=== PATIENT | female | born 1985 | race Caucasian/White ===

== ENCOUNTER 2016-11-02 08:47 | Emergency (ER) | payer OTHER ==
[2016-11-02 09:03] VITALS: BP 128/78; PULSE 75; TEMP 97.9; BMI 39.9
--- NOTE | 2016-11-02 09:34 | PDOC ---
History of Present Illness - General Chief Complaint: Cold Symptoms Stated Complaint: COUGH, POSSIBLE UTI Time Seen by Provider: 11/02/16 09:05 History Source: Patient - History of Present Illness Timing/Duration: reports: other Quality: reports: burning Past History - Past Medical History Allergies/Adverse Reactions: Allergies Allergy/AdvReac Type Severity Reaction Status Date / Time No Known Allergies Allergy Verified 11/02/16 09:03 Home Medications: Ambulatory Orders Nitrofurantoin Monohyd/M-Cryst [Macrobid -] 100 mg PO BID #14 capsule 11/02/16 Other medical history: denies - Psycho/Social/Smoking Cessation Hx Suicidal Ideation: No Smoking History: Never smoked Review of Systems - Review of Systems Constitutional: No: Chills, Fever HEENTM: No: Ear Pain, Throat Pain Respiratory: Yes: Cough. No: Shortness of Breath, Wheezing : Yes: Burning. No: Discharge, Frequency, Flank Pain, Hematuria, Lesions Musculoskeletal: No: Back Pain *Physical Exam - Vital Signs Last Vital Signs Temp Pulse Resp BP Pulse Ox 97.9 F 75 16 128/78 96 11/02/16 08:59 11/02/16 08:59 11/02/16 08:59 11/02/16 08:59 11/02/16 08:59 - Physical Exam General Appearance: Yes: Appropriately Dressed. No: Apparent Distress HEENT: positive: Normal ENT Inspection, Normal Voice. negative: Scleral Icterus (R), Scleral Icterus (L) Neck: positive: Supple. negative: Lymphadenopathy (R), Lymphadenopathy (L) Respiratory/Chest: positive: Lungs Clear, Normal Breath Sounds. negative: Respiratory Distress Cardiovascular: positive: Regular Rate, S1, S2 Female Pelvic Exam: positive: other (scant thick discharge in vault, no lesions) Gastrointestinal/Abdominal: positive: Soft. negative: Tender Integumentary: positive: Dry, Warm Neurologic: positive: Fully Oriented, Alert, Normal Mood/Affect Medical Decision Making - Medical Decision Making 11/02/16 09:31 31-year-old female, denies any past medical history, here with multiple complaints including non-productive cough 3 weeks, not getting better with over -the-counter medication. No hemoptysis, shortness of breath, chest pain, fever or chills. Non-smoker. Denies sick contacts. Patient also complaining of severe external vaginal itching 2 days, no discharge or vaginal lesions. Using vagisil w/ no relief. States she is not sure if she has burning on urination as well. No frequency, flank pain, nausea or vomiting. States her last [employer] exam was a month ago and was tested negative for STDs as per patient. see exam Cough M/l viral No e/o PNA Exam unremarkable -d/c w/ supportive tx ?dysuria R/o uti no e/o pyelo -ua/cx pending Vaginal itching Pelvic exam w/ minimal thick discharge Possible libby Tested neg for STDs recently as per pt, no new sex partners -dose of diflucan in ED 11/02/16 10:00 11/02/16 10:19 3+ LE on ua, will consider tx given ? dysuria. No prior sensitivities on record 11/02/16 10:21 *DC/Admit/Observation/Transfer Diagnosis at time of Disposition: Vaginal itching - Discharge Dispostion Disposition: HOME Condition at time of disposition: Good - Prescriptions Prescriptions: Nitrofurantoin Monohyd/M-Cryst [Macrobid -] 100 mg PO BID #14 capsule - Referrals Referrals: Travis Aguayo MD [Primary Care Provider] - - Patient Instructions Printed Discharge Instructions: DI for Viral Upper Respiratory Infection -- Adult, DI for Vaginal Yeast Infection Additional Instructions: After given Diflucan in ED, your symptoms will gradually go away over the next several days. You can continue to use Vagisil as needed until symptoms improve. Take antibiotics as directed Please report to your [employer] as needed
[2016-11-02] MEDS ORDERED: FLUCONAZOLE 50 MG TABLET PO ONE (09:57)
[2016-11-02] MEDS ORDERED: FLUCONAZOLE 100 MG TABLET (UD) ONE (10:00)
[2016-11-02 10:01] LABS: URINE APPEARANCE CLEAR; URINE BILIRUBIN NEGATIVE (NEGATIVE); URINE COLOR LTYELLOW; URINE GLUCOSE (UA) NEGATIVE (NEGATIVE); URINE KETONE NEGATIVE (NEGATIVE); URINE NITRITE NEGATIVE (NEGATIVE); URINE PROTEIN NEGATIVE (NEGATIVE); URINE UROBILINOGEN NEGATIVE E.U./dl (0.2-1.0)
[2016-11-02 10:10] LABS: URINE BLOOD 1+ (NEGATIVE); URINE LEUK ESTERASE 3+ (NEGATIVE)
[2016-11-02 10:18] LABS: URINE MUCUS RARE; URINE RBC 3 /hpf (0-3); URINE WBC 2 /hpf (3-5)
== END 2016-11-02 10:25 | disposition home or self-care (01) ==
LOC: JERFT 08:47
DX: L29.2 Pruritus vulvae (principal)
CPT/HCPCS: 81003; 81015; 84703; 87086; 99281-25

== ENCOUNTER 2016-11-03 01:17 | Emergency (ER) | payer OTHER ==
[2016-11-03 01:42] VITALS: BP 139/82; PULSE 89; TEMP 97.1; BMI 31.7
--- NOTE | 2016-11-03 02:12 | PDOC ---
History of Present Illness - General Chief Complaint: Vaginal Sxs Stated Complaint: VAGINAL ITCHING Time Seen by Provider: 11/03/16 01:23 - History of Present Illness Initial Comments: 11/03/16 02:41 CHIEF COMPLAINT: vaginal itching HISTORY OF PRESENT ILLNESS: 31 yo F with no PMH returns to ED today for vaginal itching. Patient was treated earlier this morning for both UTI and yeast infection; 1 dose of fluconazole was given in the ED and patient was prescribed Nitrofurantoin. Patient returns because she complains that she still has itching. PAST MEDICAL HISTORY: Denies past medical history FAMILY HISTORY: Denies SOCIAL HISTORY: Denies tobacco, alcohol, illicit drug use. SURGICAL HISTORY: Denies ALLERGIES: No known drug allergies REVIEW OF SYSTEMS General/Constitutional: Denies fever or chills. Denies weakness, weight change. HEENT: Denies change in vision. Denies ear pain or discharge. Denies sore throat. Cardiovascular: Denies chest pain or shortness of breath. Respiratory: Denies cough, wheezing, or hemoptysis. Gastrointestinal: Denies nausea, vomiting, diarrhea or constipation. Denies rectal bleeding. Genitourinary: Vaginal itching. Denies dysuria, frequency, or change in urination. Musculoskeletal: Denies joint or muscle swelling or pain. Denies neck or back pain. Skin and breasts: Denies rash or easy bruising. PHYSICAL EXAM General Appearance: Well-appearing, appropriately dressed. No apparent distress , no intoxication. HEENT: EOMI, PERRLA, normal ENT inspection, normal voice, TMs normal, pharynx normal. No conjunctival pallor. No photophobia, scleral icterus. Neck: Supple. Trachea midline. No tenderness, rigidity, carotid bruit, stridor , lymphadenopathy, or thyromegaly. Respiratory/Chest: Lungs CTAB. No shortness of breath, chest tenderness, respiratory distress, accessory muscle use. No crackles, rales, rhonchi, stridor , wheezing, dullness Cardiovascular: RRR. S1, S2. No JVD, murmur, bradycardia, tachycardia. Gastrointestinal/Abdominal: Normal bowel sounds. Abdomen soft, non-distended. No tenderness or rebound tenderness. No organomegaly, pulsatile mass, guarding , hernia, hepatomegaly, splenomegaly. Musculoskeletal/Extremities: Normal inspection. FROM of all extremities, normal capillary refill. Pelvis Stable. No CVA tenderness. No tenderness to extremities, pedal edema, swelling, erythema or deformity. Integumentary: Appropriate color, dry, warm. No cyanosis, erythema, jaundice or rash Neurologic: synchronizer II-XII intact. Fully oriented, alert. Appropriate mood/affect. Motor strength 5/5. No appreciable EOM palsy, facial droop or sensory deficit. Past History - Past Medical History Allergies/Adverse Reactions: Allergies Allergy/AdvReac Type Severity Reaction Status Date / Time No Known Allergies Allergy Verified 11/02/16 09:03 Home Medications: Ambulatory Orders Nitrofurantoin Monohyd/M-Cryst [Macrobid -] 100 mg PO BID #14 capsule 11/02/16 Clotrimazole [Lotrimin -] 1 applic VG DAILY #7 tube 11/03/16 - Psycho/Social/Smoking Cessation Hx Suicidal Ideation: No Smoking History: Never smoked Have you smoked in the past 12 months: No Information on smoking cessation initiated: No Hx Alcohol Use: No Drug/Substance Use Hx: No *Physical Exam - Vital Signs Last Vital Signs Temp Pulse Resp BP Pulse Ox 97.1 F L 89 20 139/82 98 11/03/16 01:21 11/03/16 01:21 11/03/16 01:21 11/03/16 01:21 11/03/16 01:21 Medical Decision Making - Medical Decision Making 11/03/16 02:44 31 yo F with no PMH returns to ED with c/o of vaginal itching after being treated for UTI and yeast infection earlier this morning. Workup from this morning included UA, UCx. UA equivocal for UTI but patient was treated due to severe symptoms. UCx still pending. Advised patient to stop using Vagisil, will write rx for Lotrimin. ADvised patient to use medication as prescribed and f/u with PMD if symptoms persist. Explained to patient that it may take a few days for symptoms resolve. Advised patient of signs and symptoms for return to ER; patient verbalized understanding and agrees to plan. *DC/Admit/Observation/Transfer Diagnosis at time of Disposition: Vaginal itching - Discharge Dispostion Disposition: HOME Condition at time of disposition: Stable Admit: No - Prescriptions Prescriptions: Clotrimazole [Lotrimin -] 1 applic VG DAILY #7 tube - Referrals Referrals: Travis Varghese [Non Staff, Medical] - - Patient Instructions Printed Discharge Instructions: DI for Vaginal Yeast Infection Additional Instructions: Please use medication as prescribed. As discussed, if your symptoms persist, please follow up with your primary care doctor. If you experience vaginal bleeding, painful urination, severe pain to one side of your abdomen, or any new or worsening symptoms, please return to the ER. - Post Discharge Activity Work/School Note: Back to Work
== END 2016-11-03 02:29 | disposition home or self-care (01) ==
LOC: JER 01:17
DX: B37.3 Candidiasis of vulva and vagina (principal); L29.2 Pruritus vulvae
CPT/HCPCS: 99281-25

== ENCOUNTER 2019-09-24 14:44 | Emergency (ER) | payer OTHER ==
--- NOTE | 2019-09-24 15:14 | PDOC ---
Rapid Medical Evaluation Time Seen by Provider: 09/24/19 15:10 Medical Evaluation: Allergies Allergy/AdvReac Type Severity Reaction Status Date / Time No Known Allergies Allergy Verified 09/24/19 15:11 09/24/19 15:11 Pt c/o: cough, myalgia, weakness x 2 days, sibling with flu monday Pt on brief exam:vss Pt ordered for: flu Pt to proceed to the ED 09/24/19 15:14 Discharge Disposition - Diagnosis Influenza - Discharge Dispostion Disposition: HOME Condition at time of disposition: Stable - Prescriptions Prescriptions: Oseltamivir Phosphate [Tamiflu] 75 mg PO BID #10 capsule - Referrals Referrals: Beatriz Espinal MD [Staff Physician] - - Patient Instructions Additional Instructions: Please take the Tamiflu as directed. Return to the emergency room for worsening symptoms. Without fail follow-up with your primary care physician in 2 to 3 days for further evaluation and treatment options. Return to the emergency room should symptoms worsen. - Post Discharge Activity Work/School Note: Back to Work
[2019-09-24 15:16] VITALS: BP 110/64; PULSE 87; TEMP 98.6; BMI 30.9
--- NOTE | 2019-09-24 15:27 | PDOC ---
History of Present Illness - General Chief Complaint: Cold Symptoms Stated Complaint: FEVER/HEADACHE Time Seen by Provider: 09/24/19 15:10 - History of Present Illness Initial Comments: 09/24/19 15:26 34-year-old female without comorbidities presents for flulike symptoms with a positive flu contact at home. Symptoms for 2 days Past History - Past Medical History Allergies/Adverse Reactions: Allergies Allergy/AdvReac Type Severity Reaction Status Date / Time No Known Allergies Allergy Verified 09/24/19 15:11 Home Medications: Ambulatory Orders Nitrofurantoin Monohyd/M-Cryst [Macrobid -] 100 mg PO BID #14 capsule 11/02/16 Clotrimazole [Lotrimin -] 1 applic VG DAILY #7 tube 11/03/16 Oseltamivir Phosphate [Tamiflu] 75 mg PO BID #10 capsule 09/24/19 CVA: No COPD: No CHF: No DVT: No Dementia: No - Immunization History Immunization Up to Date: Yes - Psycho Social/Smoking Cessation Hx Smoking History: Never smoked Have you smoked in the past 12 months: No Information on smoking cessation initiated: No Hx Alcohol Use: No Drug/Substance Use Hx: No Review of Systems - Review of Systems Constitutional: Yes: Chills, Fever, Malaise, Night Sweats HEENTM: Yes: Nose Congestion Respiratory: Yes: Cough *Physical Exam - Vital Signs Last Vital Signs Temp Pulse Resp BP Pulse Ox 98.6 F 87 16 110/64 100 09/24/19 15:12 09/24/19 15:12 09/24/19 15:12 09/24/19 15:12 09/24/19 15:12 - Physical Exam 09/24/19 15:27 GENERAL: The patient is awake, alert, and fully oriented, in no acute distress. HEAD: Normal with no signs of trauma. EYES: sclera anicteric, conjunctiva clear. ENT: Ears normal tympanic membranes normal oropharynx clear uvula midline NECK: Normal range of motion LUNGS: Breath sounds equal, clear to auscultation bilaterally. No wheezes, and no crackles. HEART: S1 and S2 without murmur, rub or gallop. ABDOMEN: Soft, nontender, normoactive bowel sounds. No guarding, no rebound. No masses. EXTREMITIES: Normal range of motion, no edema. No clubbing or cyanosis. No cords, erythema, or tenderness. NEUROLOGICAL: Cranial nerves II through XII grossly intact. Normal speech, normal gait. PSYCH: Normal mood, normal affect. SKIN: Warm, Dry, normal turgor, no rashes or lesions noted. Medical Decision Making - Medical Decision Making 09/24/19 15:27 We will presumptively treat for flu based on sick contact and symptoms Discharge - Discharge Information Problems reviewed: Yes Clinical Impression/Diagnosis: Influenza Condition: Stable Disposition: HOME - Admission No - Additional Discharge Information Prescriptions: Oseltamivir Phosphate [Tamiflu] 75 mg PO BID #10 capsule - Follow up/Referral Referrals: Beatriz Espinal MD [Staff Physician] - - Patient Discharge Instructions Additional Instructions: Please take the Tamiflu as directed. Return to the emergency room for worsening symptoms. Without fail follow-up with your primary care physician in 2 to 3 days for further evaluation and treatment options. Return to the emergency room should symptoms worsen. - Post Discharge Activity
== END 2019-09-24 15:38 | disposition home or self-care (01) ==
LOC: JERFT 14:44
DX: J11.1 Influenza due to unidentified influenza virus with other respiratory manifestations (principal)
CPT/HCPCS: 99281-25

== ENCOUNTER 2021-03-01 18:54 | Emergency (ER) | payer OTHER ==
[2021-03-01 19:14] VITALS: BP 99/70; PULSE 60; TEMP 98; BMI 32.4
[2021-03-01] MEDS ORDERED: ACETAMINOPHEN 500 MG TABLET (FP) PO ONE (20:02)
[2021-03-01] MEDS ORDERED: ACETAMINOPHEN 500 MG TABLET (FP) ONE (20:03)
[2021-03-01 20:30] LABS: EPI CELLS 9 /uL (0-25.1); HCG,QUALITATIVE URINE Negative; HYALINE CASTS 35 /uL (0-3.1); PH,URINE 5.5 (5.0-8.0); URINE APPEARANCE TURBID; URINE BILIRUBIN 1+ (NEGATIVE); URINE COLOR RED; URINE GLUCOSE (UA) NEGATIVE (NEGATIVE); URINE KETONE NEGATIVE (NEGATIVE); URINE LEUK ESTERASE 2+ (NEGATIVE); URINE NITRITE POSITIVE (NEGATIVE); URINE PROTEIN 2+ (NEGATIVE); URINE WBC 2906 /uL (0-25.8)
[2021-03-01 21:51] LABS: URINE BACTERIA 887.1 /uL (0-1359); URINE RBC 45413.6 /uL (0-23.9)
[2021-03-01 21:53] LABS: YEAST NEGATIVE (NEGATIVE)
== END 2021-03-01 21:21 | disposition home or self-care (01) ==
LOC: JER 18:54
DX: N30.91 Cystitis, unspecified with hematuria (principal)
CPT/HCPCS: 81003; 84703; 87086; 87186; 99284-25

== ENCOUNTER 2021-06-18 00:05 | Emergency (ER) | payer OTHER ==
[2021-06-18 00:20] VITALS: BP 105/72; PULSE 64; TEMP 98; BMI 33.3
[2021-06-18 00:53] LABS: EPI CELLS 13 /uL (0-25.1); HYALINE CASTS 1 /uL (0-3.1); URINE APPEARANCE CLEAR; URINE BACTERIA 390 /uL (0-1359); URINE BILIRUBIN NEGATIVE (NEGATIVE); URINE COLOR YELLOW; URINE GLUCOSE (UA) NEGATIVE (NEGATIVE); URINE KETONE NEGATIVE (NEGATIVE); URINE LEUK ESTERASE 1+ (NEGATIVE); URINE NITRITE NEGATIVE (NEGATIVE); URINE PROTEIN NEGATIVE (NEGATIVE); URINE RBC 14 /uL (0-23.9); URINE WBC 44 /uL (0-25.8)
[2021-06-18] MEDS ORDERED: CEPHALEXIN MONOHYDRATE 500 MG CAPSULE (UD) PO ONE (02:31)
[2021-06-18] MEDS ORDERED: FLUCONAZOLE 150 MG TABLET PO ONE ×2 (02:31→02:36)
[2021-06-18] MEDS ORDERED: CEPHALEXIN MONOHYDRATE 500 MG CAPSULE (UD) ONE (02:36)
== END 2021-06-18 02:47 | disposition home or self-care (01) ==
LOC: JER 00:05
DX: L29.2 Pruritus vulvae (principal); N39.0 Urinary tract infection, site not specified
CPT/HCPCS: 36415; 81003; 87086; 87491; 87591; 99283-25

== ENCOUNTER 2021-07-16 12:11 | Emergency (ER) | payer OTHER ==
[2021-07-16 12:18] VITALS: BP 102/66; PULSE 65; TEMP 97.7; BMI 33.3
[2021-07-16 13:32] LABS: EPI CELLS 26 /uL (0-25.1); HYALINE CASTS 1 /uL (0-3.1); URINE APPEARANCE CLEAR; URINE BACTERIA 180 /uL (0-1359); URINE BILIRUBIN NEGATIVE (NEGATIVE); URINE COLOR YELLOW; URINE GLUCOSE (UA) NEGATIVE (NEGATIVE); URINE KETONE NEGATIVE (NEGATIVE); URINE LEUK ESTERASE 1+ (NEGATIVE); URINE NITRITE NEGATIVE (NEGATIVE); URINE PROTEIN NEGATIVE (NEGATIVE); URINE RBC 13 /uL (0-23.9); URINE WBC 13 /uL (0-25.8)
[2021-07-16 13:33] LABS: HCG,QUALITATIVE URINE Negative
== END 2021-07-16 13:49 | disposition home or self-care (01) ==
LOC: JERFT 12:11
DX: N89.8 Other specified noninflammatory disorders of vagina (principal)
CPT/HCPCS: 36415; 81003; 84703; 87070; 87077; 87086; 87205; 87491; 87591; 99284-25

== ENCOUNTER 2023-03-04 22:00 | Emergency (ER) | payer OTHER ==
[2023-03-04 22:14] VITALS: BP 109/57; PULSE 64; RESP 20; TEMP 98; BMI 32.4
[2023-03-04] MEDS ORDERED: KETOROLAC TROMETHAMINE 30 MG/1 ML VIAL IM ONE (23:36)
[2023-03-04] MEDS ORDERED: KETOROLAC TROMETHAMINE 30 MG/1 ML VIAL ONE (23:42)
[2023-03-05 00:58] LABS: BASO % 0.1 % (0-2.0); EOS % 0.6 % (0-4.5); HEMATOCRIT 27.8 % (32.4-45.2); HEMOGLOBIN 8.9 GM/dL (10.7-15.3); LYMPH % 36.6 % (8-40); MCH 24.9 pg (25.7-33.7); MCHC 31.9 g/dl (32.0-36.0); MEAN PLT VOLUME 7.8 fl (7.5-11.1); MONO % 9.1 % (3.8-10.2); NEUT % 53.6 % (42.8-82.8); PLATELET COUNT 154 10^3/uL (134-434); RBC 3.56 M/mm3 (3.60-5.2); RDW 17.1 % (11.6-15.6); WHITE BLOOD COUNT 4.5 K/mm3 (4.0-10.0)
[2023-03-05 01:16] LABS: POTASSIUM 4.3 mmol/L (3.5-5.1)
[2023-03-05 01:18] LABS: BLOOD UREA NITROGEN 19.7 mg/dL (7-18); CALCIUM 8.6 mg/dL (8.5-10.1)
[2023-03-05 01:19] LABS: ALBUMIN 3.6 g/dl (3.4-5.0)
[2023-03-05 01:21] LABS: URIC ACID 3.3 mg/dL (2.6-7.2)
[2023-03-05 01:22] LABS: CREATININE 0.6 mg/dL (0.55-1.3)
[2023-03-05 01:23] LABS: BILIRUBIN,TOTAL 0.2 mg/dL (0.2-1); TOT PROT 7.2 g/dl (6.4-8.2)
== END 2023-03-05 01:37 | disposition home or self-care (01) ==
LOC: JER 22:00 → JERFT 22:00
PROC: 3E0233Z Introduction of Anti-inflammatory into Muscle, Percutaneous Approach (ICD-10-PCS; principal; 2023-03-04)
DX: M79.675 Pain in left toe(s) (principal)
CPT/HCPCS: 36415; 73630-TC-LT; 80053; 84550; 85025; 99284-25